=== PATIENT | male | born 1950 | race Two or more races ===

== ENCOUNTER 2018-07-12 21:44 | Inpatient (IN) | payer OTHER ==
[~2018-07-12] VITALS: Ht 172.7 cm; Wt 88.5 kg
[2018-07-12] MEDS ORDERED: LUMIGAN2.5 M1 (22:00)
[2018-07-12] MEDS ORDERED: GLIMEPIRIDE2 MG (22:00)
[2018-07-12] MEDS ORDERED: OMEGA 3 1,0001 EACH (22:00)
[2018-07-12] MEDS ORDERED: ASPIRIN81 MG (22:00)
== END 2018-07-15 07:24 | disposition designated cancer center or children's hospital (05) | DRG 282 ==
LOC: ER 21:44 → ICU-2 07-13 10:32 → MEDI 07-13 10:32
PROVIDERS: ADMIT Internal Medicine
PROC: B246ZZZ Ultrasonography of Right and Left Heart (ICD-10-PCS; principal; 2018-07-13)
PROC: BW24ZZZ Computerized Tomography (CT Scan) of Chest and Abdomen (ICD-10-PCS; 2018-07-14)
PROC: 4A12X4Z Monitoring of Cardiac Electrical Activity, External Approach (ICD-10-PCS; 2018-07-14)
DX: I21.4 Non-ST elevation (NSTEMI) myocardial infarction (principal); I10 Essential (primary) hypertension; E11.9 Type 2 diabetes mellitus without complications; E78.49 Other hyperlipidemia; E78.00 Pure hypercholesterolemia, unspecified; J45.998 Other asthma; H40.89 Other specified glaucoma